=== PATIENT | male | born 1945 | race Caucasian/White ===

== ENCOUNTER 2019-06-27 13:17 | Day surgery (SDC) | payer MEDICARE ==
[2019-06-26 11:15] VITALS: BMI 30.5
[~2019-06-27 13:17] MED LIST: Bupivacaine PF 0.75% SDV 10 ML ONE; Fluorouracil 100 MG, Enoxaparin Sodium 25 MG, EPINEPHrine 0.3 MG in Ophthalmic Irrigati... IRR SCH; Lidocaine 1% PF 5 ML VIAL ONE; Lidocaine 4% PF 5 ML AMP ONE; Maxitrol 0.1% Opth Oint 3.5 GM TUBE ONE; Triamcinolone 40 MG/ML VIAL ONE
[2019-06-27] MEDS ORDERED: Cyclopentolate 1% Opth Drop 2 ML BOT ONE (13:37)
[2019-06-27] MEDS ORDERED: Phenylephrine 2.5% Ophth Soln 5 ML BOT ONE (13:37)
[2019-06-27] MEDS ORDERED: Fentanyl 100 MCG/2 ML VIAL ONE (14:53)
[2019-06-27] MEDS ORDERED: Midazolam HCl 2 mg/2 ml Vial ONE (14:53)
[2019-06-27] MEDS ORDERED: PROPOFOL 20 ML ONE (14:53)
--- NOTE | 2019-06-27 20:04 | OP ---
DATE OF PROCEDURE: 06/27/2019 PREOPERATIVE DIAGNOSIS: Rhegmatogenous retinal detachment, right eye. POSTOPERATIVE DIAGNOSIS: Rhegmatogenous retinal detachment, right eye. PROCEDURES PERFORMED: Pars plana vitrectomy, retinal detachment repair, right eye. ANESTHESIA: Local with monitored anesthesia care. DESCRIPTION OF PROCEDURE: The patient was identified in preoperative holding area. Appropriate informed consent for planned surgical procedure on the right eye had been obtained. The patient was transported to the operative suite. Appropriate cardiopulmonary monitoring was established. Local anesthesia was obtained using retrobulbar modified Van Lint lid block using 50:50 mixture of 4% lidocaine and 0.75% bupivacaine. The patient was prepped and draped in usual sterile manner for ophthalmic surgery on the right eye. Lid speculum was placed in the right eye. 25-gauge trocars were placed in conjunctiva and sclera supratemporally, inferotemporally, and supranasally. Infusion line was placed inferotemporally. Light pipe and vitreous cutter were inserted into the eye. Core vitrectomy was performed. Careful peripheral vitrectomy was performed. A tear was identified at the 4 o'clock position. Posterior drained retinotomy was created inferior to the nerve. Complete air-fluid exchange was performed with 10 minutes being left for fluid to drain posteriorly. 360 laser was placed using Endolaser delivery device. 15% of propane gas was infused into the eye. Trocars were removed. Superior sclerotomy was suture closed. Retrobulbar Kenalog and subconjunctival Ancef were placed. antibiotic ointment was placed. The eye was patched and shielded. The patient was taken to postoperative recovery unit in good condition having suffered no immediate perioperative complications. The patient was instructed to keep patch and shield on, avoid lifting or bending, and followup appointment with Dr. Richards. Job ID: [id number]
== END 2019-06-27 17:00 | disposition home or self-care (01) ==
LOC: SDC 13:17
PROVIDERS: ATTEND Ophthalmology Retina Specialist
PROC: 08T43ZZ Resection of Right Vitreous, Percutaneous Approach (ICD-10-PCS; principal; 2019-06-27)
DX: H33.001 Unspecified retinal detachment with retinal break, right eye (principal); E11.9 Type 2 diabetes mellitus without complications; E78.5 Hyperlipidemia, unspecified; G20 Parkinson's disease; G47.30 Sleep apnea, unspecified; Z88.5 Allergy status to narcotic agent; Z88.7 Allergy status to serum and vaccine; Z88.8 Allergy status to other drugs, medicaments and biological substances; Z99.89 Dependence on other enabling machines and devices
CPT/HCPCS: 67025; J0171; J1650; J2001; J2250; J2704; J3010; J3301; J3490; J9190